=== PATIENT | female | born 1980 | race Caucasian/White ===

== ENCOUNTER 2019-09-09 12:15 | Emergency (ER) | payer OTHER, SELFPAY ==
[2019-09-09 12:27] VITALS: BP 130/98; PULSE 117; RESP 16; TEMP 37
--- NOTE | 2019-09-09 12:33 | ED.WOUNDLAC ---
HPI - Wound/Laceration General Chief Complaint: Wound/Laceration Stated Complaint: laceration Time Seen by Provider: 09/09/19 12:30 Source: patient and RN notes reviewed Mode of arrival: ambulatory Limitations: no limitations History of Present Illness HPI narrative: 38-year-old female presents with concern for laceration to the palm of right hand. Reports prior to arrival she cut her hand on the corner of a wooden dresser drawer. Reports she is up-to-date on her tetanus. Denies any decreased sensation, strength in any digit of her hand. Related Data Home Medications Medication Instructions Recorded Confirmed No Home Medications 09/09/19 09/09/19 Allergies Allergy/AdvReac Type Severity Reaction Status Date / Time No Known Allergies Allergy Verified 07/19/18 15:06 Review of Systems Review of Systems: Narrative: CONSTITUTIONAL: Denies malaise, chills, sweats, or fever. SKIN: Laceration to palm of the right hand MUSCULOSKELETAL: Denies musculoskeletal pain NEUROLOGIC: Denies numbness, weakness. All systems reviewed & are unremarkable except as noted in HPI and below [facility] Family History Family History (Updated 02/20/19 @ 15:25 by Ruthy Nguyen RN) Mother Heart disease Social History Social History Smoking packs per day: 0.5 Smoking cigarettes per day: 10.0 Years smoked: 26 Smoking pack-years: 13.00 Smoking status: Current every day smoker Tobacco type: cigarettes Second hand tobacco smoke exposure: Yes Substance use: never Spiritual care concerns: No Comments At time of signature, agree with nursing past medical, surgical, social and family history. There is no relevant family history pertinent to the presenting complaint Exam Narrative: Exam Narrative: GENERAL: Well-appearing, well-nourished, and in no acute distress. HEAD: Normocephalic, atraumatic. EYES: PERRLA, conjunctivae clear NECK: Supple. CHEST: Speaks in full sentences. No respiratory distress. HEART: Regular rate and rhythm. Normal and equal peripheral pulses. EXTREMITIES: Right/Left hand and digits of hand have normal strength and sensation. 5/5 strength with digit flexion, extension. Range of motion normal. No clubbing, cyanosis, or edema noted. No tenderness. Normal digital cascade with flexion of fingers, median, ulnar and radial nerve intact. Normal sensation of each side of finger. Can perform 'okay' sign, 'cross over finger test of index and middle fingers' and 'thumbs up' sign. No scissoring. Normal thumb opposition. Good capillary refill and radial pulse. Distal capillary refill <3 seconds. SKIN: Warm, dry. Approximately 1 cm laceration noted on the palmar aspect of the right hand, mid palm partially into the subcutaneous tissue, partially superficial NEURO: Alert and oriented x3. PSYCH: Normal mood and affect Course Course Emergency Course: Discussed closure options with patient, discussed the wound is fairly superficial, discussed that glue is the best option, reinforced with Steri-Strips. Patient reports she understands this. Patient is aware of diagnosis, understands and agrees to treatment plan. Anticipatory guidance given. Patient agrees to follow-up as directed and is aware of reasons to seek care at the emergency department. Portions of this record may have been created with voice recognition software Vital Signs Vital signs: Vital Signs Temperature 98.6 F 09/09/19 12:27 Pulse Rate 117 H 09/09/19 12:27 Respiratory Rate 16 09/09/19 12:27 Blood Pressure 130/98 H 09/09/19 12:27 Temperature 98.6 F 09/09/19 12:27 Pulse Rate 117 H 09/09/19 12:27 Respiratory Rate 16 09/09/19 12:27 Blood Pressure 130/98 H 09/09/19 12:27 Reviewed. MDM - Wound/Laceration MDM Narrative Medical decision making narrative: Exam findings show no acute concerns or changes; patient is non-toxic appearing and is in no distress. Patient is appropriate for outpatient treatment and follow-up. Differenti
== END 2019-09-09 13:00 | disposition home or self-care (01) ==
PROVIDERS: Emergency Provider Nurse Practitioner
DX: S61.411A Laceration without foreign body of right hand, initial encounter (principal); W45.8XXA Other foreign body or object entering through skin, initial encounter
CPT/HCPCS: 12001; 99212; G0463

== ENCOUNTER 2020-09-11 00:51 | Day surgery (SDC) | payer OTHER, SELFPAY ==
[2020-09-04 08:54] VITALS: BMI 30.4
[2020-09-11] VITALS (9 sets, daily range): BP systolic 117–132; BP diastolic 70–80; PULSE 72–90; RESP 14–18; TEMP 36.8; O2SAT 94–100; BMI 28.8
--- NOTE | 2020-09-11 06:29 | WPDANESEPPF ---
Anes - Initial Pre Proc Eval Procedure: Operation Date: 09/11/20 07:30 Proposed Procedures p Bilateral Laparoscopic Salpingectomy, - Marj Newton MD s Hysteroscopy, Doris Ablation - Marj Newton MD Date/Time: 09/11/20 06:29 Surgeon: Marj Newton MD Pre Op Diagnosis: desires sterilization, menorrhagia Patient Data Age: 40 Gender: F Height: 1.61 m Weight: 79.09 kg Allergies Allergy/AdvReac Type Severity Reaction Status Date / Time No Known Allergies Allergy Verified 09/11/20 06:08 Home Medications Medication Instructions Recorded Confirmed Type No Home Medications 09/09/19 09/04/20 History Patient hx anesthesia problems: none Family hx anesthesia problems: none PMFSH Past Medical History Medical History (Updated 09/11/20 @ 06:29 by Duc May MD) Obesity Surgical History Surgical History (Updated 09/11/20 @ 06:30 by Duc May MD) History of placement of ear tubes Hx of tonsillectomy Family History Family History Mother Heart disease Social History Social History Smoking packs per day: 0.5 Smoking cigarettes per day: 10.0 Years smoked: 26 Smoking pack-years: 13.00 Smoking status: Current every day smoker Tobacco type: cigarettes Second hand tobacco smoke exposure: Yes Substance use: never Living arrangements: with family Spiritual care concerns: No Anes - Eval Final PreProcedure Day of Procedure 09/11/20 06:29 Patient weight: obese Heart: regular rate and rhythm Lungs: clear to auscultation Airway: Mallampati scale class II Neurological: alert and oriented Last oral intake: >/= 8 hours ASA classification: II Emergent: no Anesthetic plan: proceed Anesthesia type and monitoring: general ETT and standard monitoring Informed Consent: The patient's anesthetic plan and its attendant risks and benefits were discussed with the patient/family/POA. Questions were solicited and answers provided to the satisfaction of the patient/family/POA.
[2020-09-11] MEDS: LACTATED RINGERS 1,000 ML 30 ML IV CONT ×2 (06:45→08:24)
[2020-09-11] MEDS: ACETAMINOPHEN 500 MG TABLET 1000 MG PO (07:07)
[2020-09-11] MEDS: KETOROLAC 15 MG/ML VIAL (*BKC) IV PUSH (07:08)
--- NOTE | 2020-09-11 07:12 | WPDHPUPDATE1 ---
History and Physical Update Update Date/Time: 09/11/20 07:12 History and Physical has been reviewed, including an updated exam of the patient. There are NO changes in the patient's condition. Risks, benefits, and alternatives have been discussed and questions answered. Patient agrees to proceed with procedure.
--- NOTE | 2020-09-11 07:15 | WPDHPUPDATE1 ---
History and Physical Update Update Date/Time: 09/11/20 07:15 History and Physical has been reviewed, including an updated exam of the patient. There are NO changes in the patient's condition. Risks, benefits, and alternatives have been discussed and questions answered. Patient agrees to proceed with procedure.
--- NOTE | 2020-09-11 08:36 | W.PM.PROC2 ---
Procedure Note - Detailed Date of Procedure 09/11/20 Pre-op Diagnosis desires sterilization, menorrhagia Post-op Diagnosis same Procedure Performed Laparoscopic bilateral salpingectomy, endometrial ablation with hysteroscopy Surgeon Marj Newton MD Anesthesia general Indications Unwanted fertility, severe menorrhagia Findings Normal appearing ovaries, fallopian tubes, uterus. Normal vulva vagina and cervix. Normal endometrium. Description of Procedure The patient dissect the operating room. She has prepped draped in the dorsal lithotomy position after induction of general anesthesia. The 5 mm left upper quadrant incision was made with a scalpel. A 5 mm trocar was inserted into the intra-abdominal cavity under direct visualization the scope. Pneumoperitoneum was achieved. A 5 mm left lower quadrant incision was made in the skin with a scalpel. A 5 mm trocar was inserted the intra-abdominal cavity under direct visualization the scope. A 5 mm infraumbilical incision was made with scalp on a 5 mm trocar was inserted intra-abdominal cavity under direct visualization of the scope. The bilateral fallopian tubes were removed. The mesosalpinx of the fallopian tube was cauterized from the ovary in a stepwise fashion using LigaSure cautery. It was cut and cauterized in stepwise fashion around to the corneal part of the uterus and fallopian tube. The tube was transected there in amputated. This was done with LigaSure cautery. The tube was taken at the left lower quadrant trocar site. The contralateral side was done in identical fashion. The patient tolerated this portion of the procedure well. The incisions were closed subcuticular for Monocryl and with Dermabond. A speculum was placed in the vagina. Cervix grasped with a tenaculum. The cervix was dilated to about 1 cm. The hysteroscope was inserted. The above findings were noted. Measurements were taken of the uterus and cervix. The uterine length was then entered into the hand piece of the Doris device. The device was inserted into the intrauterine cavity. The array of the device was expanded. The balloon cuff was inflated. A good seal was achieved. The energy and safety cycles were initiated and completed. The array was collapsed and the instrument was withdrawn after deflating the balloon cuff. Hysteroscope was reinserted. Above findings were noted. The hysteroscope was removed. The patient tolerated the procedure well. The speculum and tenaculum were removed. She was taken to recovery in stable condition. Sponge lap and needle counts were correct x2. Estimated Blood Loss 15
[2020-09-11] MEDS: fentaNYL CITRATE INJ (*CRX) 100 MCG/2 ML VIAL 25 MCG IV PUSH ×4 (08:52→09:12)
--- NOTE | 2020-09-11 08:54 | SUR.PHASEI ---
0852; PT C/O MILD CRAMPING.
--- NOTE | 2020-09-11 09:15 | SUR.PHASEI ---
PT AWAKE AND ALERT. STATES MILD PAIN/CRAMPING AT 5/10. TOLERABLE. READY TOSEE FAMILY
[2020-09-11] MEDS: oxyCODONE HCL (*CRX) 5 MG TAB IR PO (09:38)
== END 2020-09-11 10:44 | disposition home or self-care (01) ==
PROVIDERS: Visit Provider Obstetrics & Gynecology
PROC: (CPT 49320; principal; 2020-09-11 07:30)
PROC: 0U5B8ZZ Destruction of Endometrium, Via Natural or Artificial Opening Endoscopic (ICD-10-PCS; CPT 58563; 2020-09-11 07:30)
DX: Z30.2 Encounter for sterilization (principal); N92.0 Excessive and frequent menstruation with regular cycle; N83.8 Other noninflammatory disorders of ovary, fallopian tube and broad ligament; F17.210 Nicotine dependence, cigarettes, uncomplicated; E66.9 Obesity, unspecified; Z68.28 Body mass index [BMI] 28.0-28.9, adult
CPT/HCPCS: 58661; 58563; 88302; A9270; J0330; J1885; J2250; J2405; J2704; J3010; J7030; J7120

== ENCOUNTER 2021-05-08 15:56 | Outpatient (CLI) | payer OTHER, SELFPAY ==
--- NOTE | ~2021-05-08 | MM_ITS ---
EXAMINATION: MM screening alexandra BI w july HISTORY: Screening TECHNIQUE: Craniocaudal and mediolateral oblique 3-D tomosynthesis images were obtained and synthetic 2-D images were generated. CAD analysis was submitted and interpreted. COMPARISON: No prior mammogram is available for comparison at this institution. BREAST PARENCHYMAL COMPOSITION: There are scattered areas of fibroglandular density. FINDINGS: There is no evidence of suspicious mass, calcification, or architectural distortion to sugg est malignancy in either breast. There has been no suspicious interval change. IMPRESSION: 1. No mammographic evidence of malignancy. 2. Recommend routine screening mammography in one year. BI-RADS Category 1: Negative Reviewed, dictated and finalized at location A. DENTIAL PROGRAM DIRECTOR
== END 2021-05-08 15:57 | disposition home or self-care (01) ==
LOC: ANHIMG 15:57
PROVIDERS: Visit Provider Advanced Practice Midwife
DX: Z12.31 Encounter for screening mammogram for malignant neoplasm of breast (principal)
CPT/HCPCS: 77063; 77067

== ENCOUNTER 2021-12-24 09:49 | Emergency (ER) | payer OTHER, SELFPAY ==
[2021-12-24 09:59] VITALS: BP 139/85; PULSE 97; RESP 16; TEMP 37.8; O2SAT 98
--- NOTE | 2021-12-24 10:21 | ED.URI ---
HPI - URI/Sore Throat General Chief Complaint: Upper Respiratory Infection Stated Complaint: Bodyaches,Sore Throat Time Seen by Provider: 12/24/21 10:05 Source: patient Mode of arrival: ambulatory Limitations: no limitations History of Present Illness HPI Narrative: Ms. Levine is a 41-year-old female patient presenting to the clinic today with complaints of sore throat, chest discomfort with inspiration,body aches, feeling fevers, chills, and nausea. She reports that this has been going on for 1 day. She denies any known exposure to anybody with COVID, flu, or strep MD elicited complaint: sore throat and nasal congestion Related Data Allergies Allergy/AdvReac Type Severity Reaction Status Date / Time No Known Allergies Allergy Verified 12/24/21 10:05 Review of Systems Review of Systems: Pertinent positives per HPI. Patient denies any rash, headache, visual changes, dizziness, shortness of breath, chest pain, palpitations, vomiting, diarrhea, constipation, abdominal pain, or any urinary issues. PMFSH Past Medical History Medical History Obesity Surgical History Surgical History History of placement of ear tubes Hx of tonsillectomy Family History Family History Mother Heart disease Social History Social History Smoking packs per day: 0.5 Smoking cigarettes per day: 10.0 Years smoked: 26 Smoking pack-years: 13.00 Smoking status: Current every day smoker Tobacco type: cigarettes Second hand tobacco smoke exposure: Yes Substance use: never Spiritual care concerns: No Comments At the time of my signature, I reviewed and agree with the nursing past medical, surgical, social, and family history. There is no relevant family history pertinent to the patient complaint. Exam Narrative: General: Well-developed, well nourished, in no apparent distress Head: Normocephalic, atraumatic Eyes: Pupils equally round and reactive to light bilaterally, EOM intact, sclera and conjunctive clear, no discharge, lids normal Ears: TMs intact and dull, ear canals clear, no drainage, grossly hearing normal. Nose: Nares patent, clear nasal discharge, no inflammation, no sinus tenderness. Mouth: Oral pharynx without lesions or masses, good dentition, MMM. oropharynx red, postnasal drip, tonsils surgically absent Neck: Supple, trachea midline, no enlargement of anterior or posterior cervical nodes, no thyroid masses or goiter palpable. Cardio: Regular rate and rhythm, s1 and s2 normal, no murmur appreciated. Resp: Clear to auscultation bilaterally, no rhonchi, rales, wheezing or rubs Abdomen: Soft, pliable, nontender to palpation, no CVAT tenderness, no organomegaly, bowel sounds present all 4 quadrants Course Course Emergency Course: Portions of this record may have been created with voice recognition software. Level of Care: Express Care Visit Vital Signs Vital signs: Vital Signs Temperature 37.8 C H 12/24/21 09:59 Pulse Rate 97 12/24/21 09:59 Respiratory Rate 16 12/24/21 09:59 Blood Pressure 139/85 12/24/21 09:59 Pulse Oximetry 98 12/24/21 09:59 Oxygen Delivery Room Air 12/24/21 09:59 Temperature 37.8 C H 12/24/21 09:59 Pulse Rate 97 12/24/21 09:59 Respiratory Rate 16 12/24/21 09:59 Blood Pressure 139/85 12/24/21 09:59 Pulse Oximetry 98 12/24/21 09:59 Oxygen Delivery Room Air 12/24/21 09:59 Vital signs reviewed MDM - URI/Sore Throat MDM Narrative Medical decision making narrative: at the time of visit patient is resting comfortably on the exam table. Strep and influenza testing was obtained and was negative in the clinic today. COVID PCR test was sent to the lab. Supportive measures were discussed with david
== END 2021-12-24 10:53 | disposition home or self-care (01) ==
PROVIDERS: Emergency Provider Nurse Practitioner Family
DX: B34.9 Viral infection, unspecified (principal); J06.9 Acute upper respiratory infection, unspecified; R09.82 Postnasal drip; F17.210 Nicotine dependence, cigarettes, uncomplicated; E66.9 Obesity, unspecified; Z68.28 Body mass index [BMI] 28.0-28.9, adult
CPT/HCPCS: 87081; 87804; 87880; 99213; G0463

== ENCOUNTER 2022-02-11 10:08 | Emergency (ER) | payer OTHER, SELFPAY ==
--- NOTE | ~2022-02-11 | XR_ITS ---
Clinical Indication: Cough, congestion PA and lateral views of the chest: Comparison: 12/28/2010 Findings: The lungs are clear, without evidence of focal consolidation or pleural effusion. Cardiome diastinal silhouette is within normal limits. Bones and soft tissues are unremarkable. Impression: Normal chest. Reviewed, dictated and finalized at location [] [employer]OR ASSEMBLER Impression: Normal chest.
[2022-02-11 10:15] VITALS: BP 145/109; PULSE 98; RESP 16; TEMP 36.8; O2SAT 100
--- NOTE | 2022-02-11 10:56 | ED.URI ---
HPI - URI/Sore Throat General Chief Complaint: Upper Respiratory Infection Stated Complaint: sob Time Seen by Provider: 02/11/22 10:49 Source: patient and RN notes reviewed Mode of arrival: ambulatory Limitations: no limitations History of Present Illness HPI Narrative: 41-year-old female presents concern for cough, shortness of breath, chest congestion, chest pain when she takes a deep breath. Difficulty taking deep breath. She reports the symptoms started on Wednesday. She reports she previously had COVID and has been coughing car for quite time. She reports she has been using her albuterol inhaler without relief. She denies taking any other [id number] medications for her symptoms MD elicited complaint: cough and sore throat Related Data Allergies Allergy/AdvReac Type Severity Reaction Status Date / Time No Known Allergies Allergy Verified 12/24/21 10:05 Review of Systems Review of Systems: CONSTITUTIONAL: Reports malaise EYES: Denies visual changes, redness, or discharge. ENT: Denies rhinorrhea, congestion, sinus pain, otalgia and sore throat. CARDIOVASCULAR: Denies chest pain, palpitations, or edema. RESPIRATORY: Reports cough, chest congestion, chest hurting with deep breathing, episodic dyspnea. GASTROINTESTINAL: Denies abdominal pain, nausea, vomiting, diarrhea SKIN: Denies rash or itching. MUSCULOSKELETAL: Denies myalgia. NEUROLOGIC: Denies headache. All systems reviewed & are unremarkable except as noted in HPI and below PMFSH Past Medical History Medical History Obesity Surgical History Surgical History History of placement of ear tubes Hx of tonsillectomy Family History Family History Mother Heart disease Social History Social History Smoking packs per day: 0.5 Smoking cigarettes per day: 10.0 Years smoked: 26 Smoking pack-years: 13.00 Smoking status: Current every day smoker Tobacco type: cigarettes Second hand tobacco smoke exposure: Yes Substance use: never Spiritual care concerns: No Comments At time of signature, agree with nursing past medical, surgical, social and family history. There is no relevant family history pertinent to the presenting complaint Exam Narrative: GENERAL: Well-appearing, well-nourished, and in no acute distress. HEAD: Normocephalic EYES: PERRLA, conjunctivae clear ENT: Nares clear. Mucous membranes moist. TM pearly judge with dull light reflex bilaterally; no tragal tenderness. Oropharynx not erythematous without lesions. Tonsils not enlarged and without exudate, no drooling, no hoarseness, no trismus, uvula midline. NECK: Supple. No lymphadenopathy CHEST: Scattered inspiratory and expiratory wheeze, scattered rhonchi, aeration fair right upper diminished. No rales, or stridor. No respiratory distress, speaks in full sentences. HEART: Regular rate and rhythm. No murmur heard. SKIN: Warm, dry, no rash. NEURO: Alert and oriented x3. PSYCH: Normal mood and affect Course Course Emergency Course: Patient is aware of diagnosis, understands and agrees to treatment plan. Anticipatory guidance given. Patient agrees to follow-up as directed and is aware of reasons to seek care at the emergency department. Portions of this record may have been created with voice recognition software Level of Care: Express Care Visit Vital Signs Vital signs: Vital Signs Temperature 98.2 F 02/11/22 10:15 Pulse Rate 98 02/11/22 10:15 Respiratory Rate 16 02/11/22 10:15 Blood Pressure 145/109 H 02/11/22 10:15 Pulse Oximetry 100 02/11/22 10:15 Oxygen Delivery Room Air 02/11/22 10:15 Temperature 98.2 F 02/11/22 10:15 Pulse Rate 98 02/11/22 10:15 Respiratory Rate 16 02/11/22 10:15 Blood Pressure
== END 2022-02-11 11:40 | disposition home or self-care (01) ==
PROVIDERS: Emergency Provider Nurse Practitioner
DX: J06.9 Acute upper respiratory infection, unspecified (principal); R05.9 Cough, unspecified; F17.210 Nicotine dependence, cigarettes, uncomplicated; E66.9 Obesity, unspecified; Z68.27 Body mass index [BMI] 27.0-27.9, adult
CPT/HCPCS: 71046; 99213; G0463

== ENCOUNTER 2022-11-06 03:34 | Emergency (ER) | payer OTHER, SELFPAY ==
--- NOTE | ~2022-11-06 | XR_ITS ---
Left Hand Technique: PA, oblique, and lateral views were obtained. Clinical History: Pain Findings: No acute fracture or dislocation is seen. Osseous alignment is anatomic. Joint spaces are p reserved. Soft tissues are unremarkable. Impression: Unremarkable left hand. Reviewed, dictated and finalized at location M. Impression: Unremarkable left hand.
[2022-11-06 03:37] VITALS: BP 147/76; PULSE 91; RESP 16; TEMP 36.8; O2SAT 100
[2022-11-06 04:13] VITALS: BP 120/91; PULSE 85; RESP 15; TEMP 36.6; O2SAT 99
--- NOTE | 2022-11-06 05:54 | ED.GENADULT ---
HPI - General Adult General Chief complaint: Extremity Injury, Upper Stated complaint: finger injury Time Seen by Provider: 11/06/22 04:15 History of Present Illness HPI narrative: This is a 42-year-old female presenting ED with chief complaint of pinky pain. Patient says she woke up from sleep with her pinky hurting. She notes some swellig and there is some bruising. She does not remember striking her pinky on anything. \ no other complaints Related Data Allergies Allergy/AdvReac Type Severity Reaction Status Date / Time No Known Allergies Allergy Verified 12/24/21 10:05 [facility] Past Medical History Medical History Obesity Surgical History Surgical History History of placement of ear tubes Hx of tonsillectomy Family History Family History Mother Heart disease Social History Social History Smoking packs per day: 0.5 Smoking cigarettes per day: 10.0 Years smoked: 26 Smoking pack-years: 13.00 Smoking status: Current every day smoker Tobacco type: cigarettes Second hand tobacco smoke exposure: Yes Substance use: never Living arrangements: with family Spiritual care concerns: No Exam Narrative: APPEARANCE: No apparent distress. Head: atraumatic. EYES: EOMI, NOSE: Atraumatic NECK: Trachea midline RESPIRATORY: No increased rate of breathing CARDIOVASCULAR: RRR, ABDOMINAL: Non-distended MUSCULOSKELETAl: mild swelling and bruising to the left pinky. Cap refill less than 2 seconds. Flexion extension intact. NEURO: Alert. Moving 4/4 extremities SKIN:: Warm, dry. Normal color PSYCHIATRIC: Normal affect Course Vital Signs Vital signs: Vital Signs Temperature 98.2 F 11/06/22 03:37 Pulse Rate 91 11/06/22 03:37 Respiratory Rate 16 11/06/22 03:37 Blood Pressure 147/76 H 11/06/22 03:37 Pulse Oximetry 100 11/06/22 03:37 Oxygen Delivery Room Air 11/06/22 03:37 Temperature 97.9 F 11/06/22 04:13 Pulse Rate 85 11/06/22 04:13 Respiratory Rate 15 11/06/22 04:13 Blood Pressure 120/91 H 11/06/22 04:13 Pulse Oximetry 99 11/06/22 04:13 Oxygen Delivery Room Air 11/06/22 03:37 Medical Decision Making [facility] Narrative Medical decision making narrative: -Course: 42-year-old presenting with pinky pain. Exam shows some bruising. X-rays negative for fracture. Patient be discharged on a course of NSAIDs. Primary care follow-up. -DDX includes but is not limited to: Occult phalanx fracture, soft tissue injury -Independent interpretation of studies: x-rays negative. -Interventions: Motrin Tylenol -Shared decision making / Disposition: discharge -RX Motrin Tylenol Vital Signs Vital Signs: Vital Signs Temperature 98.2 F 11/06/22 03:37 Pulse Rate 91 11/06/22 03:37 Respiratory Rate 16 11/06/22 03:37 Blood Pressure 147/76 H 11/06/22 03:37 Pulse Oximetry 100 11/06/22 03:37 Oxygen Delivery Room Air 11/06/22 03:37 Temperature 97.9 F 11/06/22 04:13 Pulse Rate 85 11/06/22 04:13 Respiratory Rate 15 11/06/22 04:13 Blood Pressure 120/91 H 11/06/22 04:13 Pulse Oximetry 99 11/06/22 04:13 Oxygen Delivery Room Air 11/06/22 03:37 Discharge Plan Discharge Clinical Impression: Finger pain Patient Disposition: Home, Self-Care Condition: Stable Instructions: Antibiotic Form, Finger Sprain (ED) Prescriptions: New ibuprofen 800 mg tablet 800 mg PO TID PRN (Reason: pain) 7 Days Qty: 21 0RF acetaminophen 500 mg tablet 1,000 mg PO TID PRN (Reason: josesito) 7 Days Qty: 42 0RF No Action albuterol sulfate 90 mcg/actuation HFA aerosol inhaler 2 puff inhalation Q4-6H PRN (Reason: shortness of breath or wheezing) 30 Days Qty: 8.5 0RF promethazine-DM 6.25-15 mg/5 mL syrup
[2022-11-06] MEDS: ACETAMINOPHEN 500 MG TABLET 1000 MG PO (06:08)
[2022-11-06] MEDS: IBUPROFEN 400 MG TABLET 800 MG PO (06:08)
[2022-11-06 06:10] VITALS: BP 130/87; PULSE 72; RESP 14; TEMP 37.3; O2SAT 97
== END 2022-11-06 06:12 | disposition home or self-care (01) ==
PROVIDERS: Emergency Provider Emergency Medicine
DX: M79.645 Pain in left finger(s) (principal); E66.9 Obesity, unspecified; Z68.30 Body mass index [BMI] 30.0-30.9, adult; F17.210 Nicotine dependence, cigarettes, uncomplicated
CPT/HCPCS: 73130; 99283; A9270

== ENCOUNTER 2022-12-22 08:37 | Emergency (ER) | payer OTHER, SELFPAY ==
--- NOTE | ~2022-12-22 | XR_ITS ---
XR chest 1V portable 12/22/2022 09:06 Indication: Shortness of breath, fever and rash. Cough. Procedure: AP portable chest Comparison: 02/11/2022 Findings: Heart size normal. No focal air space disease, pulmonary edema, or suspected pneumothorax. Small right pleural effusion. No acute osseous abnormality. Impression: 1: Small right pleural effusion. Reviewed, dictated and finalized at location L. Impression: 1: Small right pleural effusion.
[2022-12-22 08:42] VITALS: BP 152/78; PULSE 95; RESP 18; TEMP 36.9; O2SAT 100
--- NOTE | 2022-12-22 08:55 | ED.GENADULT ---
HPI - General Adult General Chief complaint: Skin/Abscess/Foreign Body Stated complaint: rash Time Seen by Provider: 12/22/22 08:44 History of Present Illness HPI narrative: 42-year-old female present emergency department for evaluation of cough shortness of breath low-grade fever and rash to her lower legs. Patient states that symptoms started on Wednesday with low-grade fever cough and shortness of breath. Patient states that last night she began developing some itching of her bilateral lower legs without associated rash. Patient did try some witch halle with no change in symptoms. Patient did not try any Benadryl. Related Data Allergies Allergy/AdvReac Type Severity Reaction Status Date / Time No Known Allergies Allergy Verified 12/22/22 08:55 Review of Systems Review of Systems: All systems reviewed & are unremarkable except as noted in HPI and below PMFSH Past Medical History Medical History Obesity Surgical History Surgical History History of placement of ear tubes Hx of tonsillectomy Family History Family History Mother Heart disease Social History Social History Smoking packs per day: 0.5 Smoking cigarettes per day: 10.0 Years smoked: 26 Smoking pack-years: 13.00 Smoking status: Current every day smoker Tobacco type: cigarettes Second hand tobacco smoke exposure: Yes Substance use: never Living arrangements: with family Spiritual care concerns: No Exam Narrative: APPEARANCE: Well appearing, no pain, no distress, well-nourished. HEAD: normocephalic, atraumatic. EYES: PERRLA/EOMI, conjunctivae clear. NOSE: Normal no drainage EARS:TMS clear with good light reflex. THROAT: Pharynx clear, no exudate. NECK: Supple. No adenopathy, no masses. RESPIRATORY: Airway patent, respirations nonlabored. Clear to auscultation bilaterally, no rales, rhonchi, wheezing. CARDIOVASCULAR: Regular rate and rhythm without murmurs rubs or gallops. ABDOMINAL: Soft, nontender, nondistended, normal bowel sounds MUSCULOSKELETAL: Moves all extremities. Strength/ROM intact, No edema, No calf tenderness. NEURO: Alert. Cranial nerves II through XII intact. Good gait. Good coordination SKIN: Urticaria to bilateral lower extremities Course Course Emergency Course: 42-year-old female presented the emergency department for evaluation of cough congestion low-grade fever and rash to lower legs. Patient is being ordered a COVID swab and a chest x-ray to evaluate for viral etiology or pneumonia. Lower extremities rash does appear consistent with allergic reaction. Patient's chest x-ray was negative other than the small pleural effusion. Patient was negative for influenza RSV and COVID. Patient is being treated for an allergic reaction. Patient was updated the results of the work-up and patient was comfortable to plan for discharge and close follow-up. Vital Signs Vital signs: Vital Signs Temperature 98.5 F 12/22/22 08:42 Pulse Rate 95 12/22/22 08:42 Respiratory Rate 18 12/22/22 08:42 Blood Pressure 152/78 H 12/22/22 08:42 Pulse Oximetry 100 12/22/22 08:42 Oxygen Delivery Room Air 12/22/22 08:42 Temperature 98.5 F 12/22/22 08:42 Pulse Rate 88 12/22/22 10:41 Respiratory Rate 14 12/22/22 10:41 Blood Pressure 144/84 H 12/22/22 10:41 Pulse Oximetry 99 12/22/22 10:41 Oxygen Delivery Room Air 12/22/22 08:42 Medical Decision Making Differential Diagnosis Differential Diagnosis: Allergic reaction, cellulitis, dermatitis Vital Signs Vital Signs: Vital Signs Temperature 98.5 F 12/22/22 08:42 Pulse Rate 95 12/22/22 08:42 Respiratory Rate 18 12/22/22 08:42 Blood Pressure 152/78 H 12/22/22 08:42 Pulse Oximetry 100 12/22/22 08:42 Oxyg
[2022-12-22 09:52] LABS: Influenza A QL RT-PCR Negative (Negative); Influenza B QL RT-PCR Negative (Negative); RSV RNA, RT-PCR Negative (Negative); SARS-CoV-2 RNA PCR Negative (Negative)
[2022-12-22 10:41] VITALS: BP 144/84; PULSE 88; RESP 14; O2SAT 99
== END 2022-12-22 10:44 | disposition home or self-care (01) ==
PROVIDERS: Emergency Provider Emergency Medicine
DX: T78.40XA Allergy, unspecified, initial encounter (principal); X58.XXXA Exposure to other specified factors, initial encounter
CPT/HCPCS: 71045; 87637; 99283

== ENCOUNTER 2023-01-07 18:09 | Inpatient (IN) | payer OTHER, SELFPAY ==
[2023-01-07] VITALS (27 sets, daily range): BP systolic 106–147; BP diastolic 56–83; PULSE 101–130; RESP 15–41; TEMP 37.2–38.2; O2SAT 91–95
--- NOTE | ~2023-01-07 | XR_ITS ---
EXAMINATION: XR chest 1V portable DATE: 01/07/2023 19:22 INDICATION: Sepsis. Shortness of breath. Cough. TECHNIQUE: A single frontal view of the chest was obtained. COMPARISON: Chest single view 12/22/2022 FINDINGS: There is no pneumonia, pleural effusion, or pneumothorax. The heart size is normal. IMPRESSION: 1. No acute cardiopulmonary disease. Reviewed, dictated and finalized at location E. DEVELOPER
--- NOTE | ~2023-01-07 | CT_ITS ---
EXAMINATION: CTA chest PE protocol DATE: 01/07/2023 21:28 INDICATION: Dyspnea. TECHNIQUE: Computed tomography angiography (CTA) of the chest was performed with 100 mL Omnipaque-350 intravenous contrast timed to evaluate the pulmonary arteries. Coronal maximum intensity projection 3D-reconstructions were created by the technologist. Automated exposure control and iterative reconst ruction technique were employed. The dose-length product was 454.36 mGy-cm. COMPARISON: None. FINDINGS: There is mild scarring at the lung apices. There is mild emphysema. There is smooth septal thickening in the lungs, consistent with mild pulmonary edema. There are scattered small nodules in a ll lobes. There are small peripheral airspace opacities in the inferior lungs. A calcified left lung nodule and calcified left hilar lymph nodes are consistent with old granulomatous disease. There are trace pleural effusions. The heart size is normal. No pericardial effusion. There is no pulmonary emb olus. There is mild mediastinal and bilateral hilar lymphadenopathy. There is a small sliding hiatal hernia. There is an 18 mm mass in the liver with interrupted peripheral puddling of contrast, consist ent with a hemangioma. There is moderate cervical spondylosis and mild thoracic spondylosis. IMPRESSION: 1. No pulmonary embolus. 2. Diffuse lung disease, likely a combination of mild pulmonary edema and multifocal pneumonia superi mposed on mild emphysema. 3. Mild mediastinal and bilateral hilar lymphadenopathy, likely reactive. Reviewed, dictated and finalized at location E. RITY SOLUTIONS ARCHITECT IMPRESSION: 1. No pulmonary embolus. 2. Diffuse lung disease, likely a combination of mild pulmonary edema and multi focal pneumonia superimposed on mild emphysema. 3. Mild mediastinal and bilateral hilar lymphadenopathy, likely reactive.
--- NOTE | 2023-01-07 18:20 | ECG_ITS ---
Measurements Intervals [place] Rate: 108 P: 60 DC: 116 QRS: 66 QRSD: 81 T: 68 QT: 329 QTc: 442 Interpretive Statements SINUS TACHYCARDIA WITH SHORT DC INTERVAL LEFT ATRIAL ENLARGEMENT NONSPECIFIC ST & T-WAVE ABNORMALITY- ANTEROLATERAL LEADS BASELINE ARTIFACT- AVL ABNORMAL ECG NO PREVIOUS ECG AVAILABLE FOR COMPARISON Electronically Signed On 01-07-2023 18:49:41 LUNCHEONETTE MANAGER by Anatoliy Beckman D.O.
--- NOTE | 2023-01-07 18:22 | ED.GENADULT ---
HPI - General Adult General Chief complaint: Unspecified Stated complaint: flu sx Source: patient Mode of arrival: EMS Limitations: no limitations History of Present Illness HPI narrative: This is a 42-year-old female who presents to the ED via EMS for chief complaint of flulike symptoms beginning today. Reports that she was at work when she started to feel sick today. Reports having body aches, cough and sore throat. She reports she is a smoker so she always has a little bit of a cough but it is somewhat productive. She called ambulance today because she started to feel short of breath. Reports tightness with breathing. Patient reports the body aches are all throughout the arms, legs and back. Denies chest pain or abdominal pain. Denies nausea, vomiting, leg swelling, palpitations, LOC, headache, neck pain. States she did a home COVID test that was negative. Related Data Allergies Allergy/AdvReac Type Severity Reaction Status Date / Time No Known Allergies Allergy Verified 12/22/22 08:55 Review of Systems Review of Systems: All systems as dictated in [facility] Past Medical History Medical History Obesity Surgical History Surgical History History of placement of ear tubes Hx of tonsillectomy Family History Family History Mother Heart disease Social History Social History Smoking packs per day: 0.5 Smoking cigarettes per day: 10.0 Years smoked: 26 Smoking pack-years: 13.00 Smoking status: Current every day smoker Tobacco type: cigarettes Second hand tobacco smoke exposure: Yes Substance use: never Living arrangements: with family Spiritual care concerns: No Exam Narrative: GENERAL: Appears ill HEAD: Normocephalic, atraumatic. EYES: PERRLA and EOMI. ENT: Nares clear, no rhinorrhea or epistaxis. Mucous membranes moist. Oropharynx without tonsillar hypertrophy exudate or other lesions. NECK: Supple. No adenopathy or masses. CHEST: No respiratory distress. Tachypnea present. Faint wheezes heard bilaterally. 93% on room air. Able to speak in full sentences HEART: Tachycardic in the 110s. Regular rhythm.. No murmur heard. Normal peripheral pulses. ABDOMEN: Soft, nontender, nondistended, normal active bowel sounds. MSK: Normal range of motion. No edema. SKIN: Warm, dry, no rash. NEURO: Alert and oriented x3. No focal deficits. PSYCH: Normal mood and affect. Course Course Emergency Course: Became hypoxic in the upper 80s during the evaluation so she was placed on 2 L nasal cannula. Reevaluation 2140: Patient feeling okay. She is agreeable with plan for admission based on the findings of pneumonia. Vital Signs Vital signs: Vital Signs Temperature 100.7 F H 01/07/23 18:12 Pulse Rate 118 H 01/07/23 18:12 Respiratory Rate 32 H 01/07/23 18:12 Blood Pressure 147/83 H 01/07/23 18:12 Pulse Oximetry 93 01/07/23 18:12 Oxygen Delivery Room Air 01/07/23 18:12 Temperature 100.7 F H 01/07/23 18:12 Pulse Rate 107 H 01/07/23 20:06 Respiratory Rate 26 H 01/07/23 20:06 Blood Pressure 126/71 01/07/23 20:05 Pulse Oximetry 92 01/07/23 21:01 Oxygen Delivery Nasal Cannula 01/07/23 21:01 Oxygen Flow Rate 2 01/07/23 21:01 Medical Decision Making MDM Narrative Medical decision making narrative: This is a 42-year-old female who presents to the ED via EMS for chief complaint of shortness of breath. She arrives tachycardic, tachypneic and febrile triggering sepsis protocol. Initially she is 93% on room air. During the evaluation she stated consistently in the upper 80s so she was started on 2 L nasal cannula. On exam I hear some slight wheezes but otherwise exam is intact. She is a long-term smoker. Lab work shows a white
[2023-01-07] MEDS: SODIUM CHLORIDE 0.9% IV 1,000 ML 999 ML IV CONT ×2 (19:19→21:45)
[2023-01-07 19:23] LABS: Alanine Aminotransferase 18 U/L (6-35); Albumin Level 4.2 g/dL (3.5-5.1); Alkaline Phosphatase 94 U/L (38-126); Anion Gap 8 mmol/L (8-16); Aspartate Amino Transferase 17 U/L (14-36); Blood Urea Nitrogen 6 mg/dL (7-17); CRP 2.9 mg/dL (<1.0); Calcium 8.9 mg/dL (8.4-10.2); Carbon Dioxide 23 mmol/L (22-30); Chloride 105 mmol/L (98-107); Estimated CRCL calculation 101 ml/min; Estimated Glomerular Filt Rate > 60; Glucose 113 mg/dL (65-110); Potassium 3.6 mmol/L (3.4-5.0); Sodium 136 mmol/L (137-145)
[2023-01-07 19:24] LABS: Lactic Acid Reflex 1.3 mmol/L (0.7-2.0)
[2023-01-07 19:30] LABS: Influenza A QL RT-PCR Negative (Negative); Influenza B QL RT-PCR Negative (Negative); RSV RNA, RT-PCR Negative (Negative); SARS-CoV-2 RNA PCR Negative (Negative)
--- NOTE | 2023-01-07 20:13 | PC.NURSE ---
pt states they are unable to void at this time and would like more time to urinate instead of a straight cath. pt was educated to use call light when they have any urge to urinate. pt is a hard stick and phlebotomy was consulted @1845 for blood tests. as of now phlebotomy has not been down yet. pt refused any blood draw attempts from any tech on the floor.
--- NOTE | 2023-01-07 20:25 | PC.NURSE ---
pt states they would like to refuse anymore needle sticks. pt had 2 attempts in ems and multiple attempts (6-7) for blood draw at ED. pt was educated on the purpose of getting a CTA but still would like to refuse. provider notified.
[2023-01-07 21:09] LABS: Basophils Percent Auto 0.1 % (0.2-1.2); Eosinophils Absolute Auto 0.5 K/mm3 (0-0.3); Eosinophils Percent Auto 2.3 % (0-4.4); Hemoglobin 13.7 g/dL (12.0-15.0); Immature Granulocyte Absolute 0.09 K/mm3 (0.00-0.031); Immature Granulocyte Percent A 0.4 % (0-0.5); Lymphocytes Absolute Auto 0.95 K/mm3 (0.9-3.2); Lymphocytes Percent Auto 4.7 % (18.3-44.2); Mean Corpuscular HGB Conc 31.9 g/dl (32-36); Mean Corpuscular Volume 84.6 fl (80-100); Monocytes Absolute Auto 0.7 K/mm3 (0.1-0.6); Monocytes Percent Auto 3.3 % (2.6-8.5); Neutrophils Percent Auto 89.2 % (45.5-73.1); Platelet Count Result 237 k/mm3 (150-375); Red Blood Count 5.08 M/mm3 (4.2-5.4); Red Cell Distribution Width 14.6 % (11.5-14.5); White Blood Count 20.2 K/mm3 (4.5-10.0)
[2023-01-07 21:15] LABS: Partial Thromboplastin Time 37.8 SECONDS (22.3-36.8)
[2023-01-07] MEDS: ACETAMINOPHEN 500 MG TABLET 1000 MG PO (22:00)
[2023-01-07] MEDS: AZITHROMYCIN 500 MG/NS 250 ML 500 MG/250 ML BAG 250 MG IVPB (22:02)
--- NOTE | 2023-01-07 23:04 | PC.NURSE ---
pt care and report given to JHOANA Marino. all questions answered.
[2023-01-07] MEDS: SODIUM CHLORIDE 0.9% IV 1,000 ML 125 ML IV CONT (23:42)
--- NOTE | 2023-01-07 23:47 | PM.IMHP ---
H&P: HPI History of Present Illness Date/Time: 01/07/23 23:47 Chief Complaint: Cough, Flu like symptoms Narrative: This is a 42-year-old female who presents to the ED via EMS for chief complaint of flulike symptoms beginning today.? Reports that she was at work when she started to feel sick today.? Reports having body aches, cough and sore throat.? She reports she is a smoker so she always has a little bit of a cough but it is somewhat productive.? She called ambulance today because she started to feel short of breath.? Reports tightness with breathing.? Patient reports the body aches are all throughout the arms, legs and back.? Denies chest pain or abdominal pain.? Denies nausea, vomiting, leg swelling, palpitations, LOC, headache, neck pain. She denied fever, N/V/D. She was found to have multifocal pneumonia in the ED, she requires 4L of o2 to maintain saturation above 95%, she is tacycardic and tachypneic, has received fluid bolus and also antibiotics, feels much better. Review of Systems Review of Systems: All systems reviewed & are unremarkable except as noted in HPI and below PMFSH Past Medical History Medical History Obesity Surgical History Surgical History History of placement of ear tubes Hx of tonsillectomy Family History Family History Mother Heart disease Social History Social History Smoking packs per day: 0.5 Smoking cigarettes per day: 10.0 Years smoked: 26 Smoking pack-years: 13.00 Smoking status: Current every day smoker Tobacco type: cigarettes Second hand tobacco smoke exposure: Yes Substance use: never Living arrangements: with family Spiritual care concerns: No Meds Home Medications and Allergies Home Medications Medication Instructions Recorded Confirmed Type albuterol sulfate 90 mcg/actuation 2 puff inhalation Q4-6H PRN 12/24/21 02/11/22 Rx aerosol inhaler shortness of breath or wheezing 30 days #8.5 grams azithromycin 250 mg tablet See Rx Instructions PO .COMPLEX #6 02/11/22 Rx (Zithromax Z-Elliot) tabs prednisone 20 mg tablet 40 mg PO DAILY 5 days #10 tabs 02/11/22 Rx promethazine-DM 6.25 mg-15 mg/5 mL 5 ml PO Q4-6H PRN cough #120 mL 02/11/22 Rx oral syrup acetaminophen 500 mg tablet 1,000 mg PO TID PRN josesito 7 days #42 11/06/22 Rx tabs ibuprofen 800 mg tablet 800 mg PO TID PRN pain 7 days #21 11/06/22 Rx tabs prednisone 50 mg tablet 50 mg PO DAILY #5 tabs 12/22/22 Rx Allergies Allergy/AdvReac Type Severity Reaction Status Date / Time No Known Allergies Allergy Verified 12/22/22 08:55 Vital Signs Vital Signs - 24 hr 01/07/23 18:12 01/07/23 18:12 01/07/23 18:12 Temperature 100.7 F H Pulse Rate 118 H 117 H Respiratory Rate 32 H Blood Pressure 147/83 H Pulse Oximetry 93 93 Oxygen Delivery Room Air Room Air Oxygen Flow Rate 01/07/23 18:17 01/07/23 18:30 01/07/23 18:45 Temperature Pulse Rate 122 H 113 H 119 H Respiratory Rate 26 H 17 15 Blood Pressure Pulse Oximetry 93 92 Oxygen Delivery Oxygen Flow Rate 01/07/23 19:00 01/07/23 19:15 01/07/23 19:30 Temperature Pulse Rate 116 H 130 H 118 H Respiratory Rate 24 H 25 H 29 H Blood Pressure Pulse Oximetry 91 92 92 Oxygen Delivery Oxygen Flow Rate 01/07/23 19:45 01/07/23 20:00 01/07/23 20:05 Temperature Pulse Rate 110 H 107 H 108 H Respiratory Rate 26 H 30 H 27 H Blood Pressure 126/71 Pulse Oximetry 93 91 92 Oxygen Delivery Oxygen Flow Rate 01/07/23 21:01 01/07/23 20:06 01/07/23 21:43 Temperature Pulse Rate 107 H 115 H Respiratory Rate 26 H 21 H Blood Pressure Pulse Oximetry 92 91 94 Oxygen Delivery Nasal Cannula Oxygen Flow Rate 2 01/07/23 21:45 01/07/23 21:54 01/07/23
[2023-01-08] VITALS (32 sets, daily range): BP systolic 106–139; BP diastolic 59–82; PULSE 72–119; RESP 14–31; O2SAT 90–100; BMI 29.2
[2023-01-08 03:43] LABS: Appearance Urine Clear (Clear); Bilirubin Urine Negative (Negative); Blood Urine Negative (Negative); Color Urine Yellow (Yellow); Glucose Urine UA Negative (Negative); Ketones Urine Negative (Negative); Leukocyte Esterase Ur Negative LEU/UL (Negative); Nitrate Urine Negative (Negative); Protein Urine Negative (Negative)
[2023-01-08 03:45] LABS: Add Urine Microscopic? NO; Specific Grav Ur 1.041 (1.001-1.035)
[2023-01-08] MEDS: IPRATROPIUM BR 0.02% INH SOLN 0.5 MG/2.5 ML VIAL INHALATION ×2 (04:29→11:00)
[2023-01-08] MEDS: ALBUTEROL SULFATE NEB 2.5 MG/3 ML INH INHALATION ×2 (04:29→11:00)
[2023-01-08 07:46] LABS: Basophils Percent Auto 0.1 % (0.2-1.2); Eosinophils Absolute Auto 0.9 K/mm3 (0-0.3); Eosinophils Percent Auto 7.7 % (0-4.4); Hemoglobin 13.4 g/dL (12.0-15.0); Immature Granulocyte Absolute 0.03 K/mm3 (0.00-0.031); Immature Granulocyte Percent A 0.2 % (0-0.5); Lymphocytes Absolute Auto 0.81 K/mm3 (0.9-3.2); Lymphocytes Percent Auto 6.6 % (18.3-44.2); Mean Corpuscular HGB Conc 31.2 g/dl (32-36); Mean Corpuscular Hemoglobin 27.1 pg (26-34); Monocytes Absolute Auto 0.6 K/mm3 (0.1-0.6); Monocytes Percent Auto 4.8 % (2.6-8.5); Neutrophils Absolute Auto 9.8 K/mm3 (1.3-6.7); Neutrophils Percent Auto 80.6 % (45.5-73.1); Platelet Count Result 220 k/mm3 (150-375); Red Blood Count 4.94 M/mm3 (4.2-5.4); Red Cell Distribution Width 14.6 % (11.5-14.5); White Blood Count 12.2 K/mm3 (4.5-10.0)
[2023-01-08] MEDS: SODIUM CHLORIDE 0.9% IV 1,000 ML 125 ML IV CONT (07:48)
[2023-01-08 07:50] LABS: Anion Gap 4 mmol/L (8-16); Blood Urea Nitrogen 5 mg/dL (7-17); Calcium 7.9 mg/dL (8.4-10.2); Carbon Dioxide 26 mmol/L (22-30); Chloride 106 mmol/L (98-107); Estimated CRCL calculation 101 ml/min; Estimated Glomerular Filt Rate > 60; Glucose 95 mg/dL (65-110); Potassium 3.5 mmol/L (3.4-5.0); Sodium 136 mmol/L (137-145)
--- NOTE | 2023-01-08 07:53 | PC.NURSE ---
Breakfast tray ordered for pt
--- NOTE | 2023-01-08 07:53 | PC.NURSE ---
Lovenox education provided to pt who refused injection.
--- NOTE | 2023-01-08 07:57 | PC.NURSE ---
IV access in L forearm discontinued per pts request. Pt reported access was causing her pain, and was tender when this RN flushed it.
[2023-01-08] MEDS: diphenhydrAMINE HCl CAP 25 MG CAPSULE 50 MG PO (09:34)
--- NOTE | 2023-01-08 10:15 | PC.NURSE ---
Called Hospitalist office - spoke with Clay in regards to pt requesting to be seen by a doctor - Requesting to go home.
--- NOTE | 2023-01-08 11:50 | PC.NURSE ---
pt self removed oxygen
--- NOTE | 2023-01-08 12:15 | PC.NURSE ---
0730 Pt requesting to be seen by provider due to wanting to leave because she believes her vital signs are better.
--- NOTE | 2023-01-08 12:17 | PC.NURSE ---
0900 Pt requesting to be seen by provider
--- NOTE | 2023-01-08 12:21 | PC.NURSE ---
1000 pt requesting to see provider, charge nurse notified.
--- NOTE | 2023-01-08 12:23 | PC.NURSE ---
1015 chargemaster analyst called for hospitalist to come see pt
--- NOTE | 2023-01-08 12:57 | PM.DS ---
DS: Admitting Diagnosis Discharge Date 01/08/23 Admitting Diagnosis PNA DS: Discharge Diagnosis Discharge Diagnosis (1) Acute hypoxemic respiratory failure: Code(s): J96.01 - Acute respiratory failure with hypoxia Status: Acute (2) Multifocal pneumonia: Code(s): J18.9 - Pneumonia, unspecified organism Status: Acute DS: Summary Hospital Course Reason for hospitalization: Resp failure Hospital Course: This is a 42-year-old female who presents to the ED via EMS for chief complaint of flulike symptoms beginning today.? Reports that she was at work when she started to feel sick today.? Reports having body aches, cough and sore throat.? She reports she is a smoker so she always has a little bit of a cough but it is somewhat productive.? She called ambulance today because she started to feel short of breath.? Reports tightness with breathing.? Patient reports the body aches are all throughout the arms, legs and back.? Denies chest pain or abdominal pain.? Denies nausea, vomiting, leg swelling, palpitations, LOC, headache, neck pain. She denied fever, N/V/D. She was found to have multifocal pneumonia in the ED, she requires 4L of o2 to maintain saturation above 95%, she is tacycardic and tachypneic, has received fluid bolus and also antibiotics, feels much better. This morning patient off oxygen, vital signs stable, leukocytosis, markedly improved. Patient earnestly requested discharge and was on the verge of leaving AMA, since she was stable and ambulating freely, I discharged on Levaquin for 6 days. Follow-up with PCP 3-5 days. Advised to come back ER shortness worse. Assessment and Plan Assessment and plan (1) Sepsis: ?Code(s): A41.9 - Sepsis, unspecified organism ?Status:?Acute (2) Multifocal pneumonia: ?Code(s): J18.9 - Pneumonia, unspecified organism ?Status:?Acute (3) Acute hypoxemic respiratory failure: ?Code(s): J96.01 - Acute respiratory failure with hypoxia ?Status:?Acute Plan discharged per above. F/u with PCP in 3-5 days Time Spent with Patient Time attestation: Total time spent providing and/or coordinating discharge services: DS: Data Data Completed and Pending Labs on day of discharge: Labs from last 24 hours 01/08/23 01/08/23 01/07/23 07:28 03:33 20:58 WBC 12.2 H 20.2 H RBC 4.94 5.08 Hgb 13.4 13.7 D Hct 43.0 43.0 MCV 87.0 84.6 MCH 27.1 27.0 MCHC 31.2 L 31.9 L RDW 14.6 H 14.6 H Plt Count 220 237 MPV 10.0 10.0 Immature Gran % (Auto) 0.2 0.4 Neut % (Auto) 80.6 H 89.2 H Lymph % (Auto) 6.6 L 4.7 L S[place]y % (Auto) 4.8 3.3 Eos % (Auto) 7.7 H 2.3 Baso % (Auto) 0.1 L 0.1 L Lymph # (Auto) 0.81 L 0.95 [place]y # (Auto) 0.6 0.7 H Eos # (Auto) 0.9 H 0.5 H Baso # (Auto) 0.0 0.0 Abs Immat Gran (auto) 0.03 0.09 H Absolute Neuts (auto) 9.8 H 18.0 H Absolute Nucleated RBC 0.0 0.0 Nucleated RBC % 0.0 0.0 PT 14.0 INR 1.0 APTT 37.8 H Sodium 136 L Potassium 3.5 Chloride 106 Carbon Dioxide 26 Anion Gap 4 L BUN 5 L Creatinine 0.60 L Estim Creat Clear Calc 101 Estimated GFR > 60 Glucose 95 Lactic Acid Calcium 7.9 L Total Bilirubin AST ALT Alkaline Phosphatase C-Reactive Protein Total Protein Albumin Urine Color Yellow Urine Appearance Clear Urine pH 6.0 Ur Specific [place] 1.041 H Urine Protein Negative Urine Glucose (UA) Negative Urine Ketones Negative Ur Blood (Man) Negative Urine Nitrate Negative Urine Bilirubin Negative Urine Urobilinogen 1.0 Leukocyte Esterase Rfl Negative Influenza A (RT-PCR) Influenza B (RT-PCR) RSV (RT-PCR) SARS-CoV-2 RNA (RT-PCR) 01/07/23 01/07/23 19:01 18:42 WBC RBC Hgb Hct MCV MCH MCHC RDW Plt Count MPV Immature Gran % (Auto) Neut % (Auto) Lymph % (Auto) [place]ible[place] % (Auto) Eos % (Auto)
--- NOTE | 2023-01-08 13:02 | PC.NURSE ---
pt transferred to room 315-1 from ER. Offers no complaints at this time.
--- NOTE | 2023-01-09 09:43 | PC.NURSE ---
Patient called with questions regarding her discharge instructions. All questions answered.
== END 2023-01-08 14:00 | disposition home or self-care (01) | DRG 720 ==
LOC: ANHED 21:42 → ANH3MEDSUR 01-08 00:46
PROVIDERS: Admitting Provider Student in an Organized Health Care Education/Training Program; Emergency Provider Physician Assistant; Visit Provider Internal Medicine
DX: A41.9 Sepsis, unspecified organism (principal); J96.01 Acute respiratory failure with hypoxia; J18.9 Pneumonia, unspecified organism; Z20.822 Contact with and (suspected) exposure to COVID-19; F17.210 Nicotine dependence, cigarettes, uncomplicated
CPT/HCPCS: 36415; 71045; 71275; 80048; 80053; 81003; 83605; 85025; 85610; 85730; 86140; 87040; 87147; 87181; 87186; 87637; 93005; 94640; 96361; 96365; 96367; 99291; A9270; G0378; G0379; J0456; J0696; J7030; Q9967

== ENCOUNTER → 2023-01-20 13:33 | Outpatient (CLI) | payer OTHER, SELFPAY ==
--- NOTE | ~2023-01-20 | XR_ITS ---
EXAMINATION: XR chest 2V DATE: 01/20/2023 13:51 INDICATION: Tobacco use, follow-up pneumonia TECHNIQUE: PA and lateral views of the chest are obtained. COMPARISON: 01/07/2023 FINDINGS: The lungs are free of acute opacities. No pleural effusion or pneumothorax. The cardiomedia stinal silhouette is normal. There is mild thoracic spondylosis. IMPRESSION: 1. No acute cardiopulmonary abnormality. Reviewed, dictated and finalized at location F. ET ATTENDANT
== END ==
PROVIDERS: PCP Emergency Medicine; Visit Provider Emergency Medicine
DX: J18.9 Pneumonia, unspecified organism (principal)
CPT/HCPCS: 71046

== ENCOUNTER 2023-02-24 15:18 | Outpatient (CLI) | payer OTHER, SELFPAY ==
--- NOTE | ~2023-02-24 | XR_ITS ---
EXAMINATION: XR chest 2V Exam Date/Time: 02/24/2023 15:45 IMAGING ADMINISTRATOR HISTORY: PNEUMONIA Comparison: 01/20/2023. RESULT: Lines, tubes, and devices: None. Lungs and pleura: Clear. Cardiomediastinal silhouette: Stable. Other: No acute osseous or upper abdominal finding. IMPRESSION: No acute cardiopulmonary process. Reviewed, dictated and finalized at location K. ING ADMINISTRATOR
[2023-02-24 16:21] LABS: SARS-CoV-2 RNA PCR Negative (Negative)
== END 2023-02-24 15:19 | disposition home or self-care (01) ==
PROVIDERS: PCP Emergency Medicine; Visit Provider Emergency Medicine
DX: J06.9 Acute upper respiratory infection, unspecified (principal); Z20.822 Contact with and (suspected) exposure to COVID-19
CPT/HCPCS: 71046; 87502; 87634; 87635; 87637

== ENCOUNTER 2023-02-28 17:18 | Emergency (ER) | payer OTHER, SELFPAY ==
[2023-02-28 17:34] VITALS: BP 160/97; PULSE 86; RESP 18; TEMP 36.6; O2SAT 100
--- NOTE | 2023-02-28 17:48 | ED.URI ---
HPI - URI/Sore Throat General Chief Complaint: Upper Respiratory Infection Stated Complaint: cough, hx pneumonia 1 month ago Time Seen by Provider: 02/28/23 17:40 Source: patient Mode of arrival: ambulatory Limitations: no limitations History of Present Illness HPI Narrative: Kimber is a 42-year-old female patient presenting to the clinic today with complaints of cough for over 1 month. She reports she had pneumonia 1 month ago and still has a lingering cough. Reports PCP ordered a chest x-ray and pneumonia has resolved. Still has lingering cough. Denies any cough production. Denies any shortness of breath. Also reports some vaginal discharge. States that she is concerned about bacterial vaginosis. Has had Trichomonas as well in the past. Patient states that her insurance runs out at midnight and is wanting evaluated for these issues tonight. MD elicited complaint: cough Related Data Allergies Allergy/AdvReac Type Severity Reaction Status Date / Time No Known Allergies Allergy Verified 01/08/23 08:00 Review of Systems Review of Systems: Pertinent positives per HPI. Patient denies any fever, chills, rash, headache, visual changes, dizziness, cough, shortness of breath, chest pain, palpitations, nausea, vomiting, diarrhea, constipation, abdominal pain, or any urinary issues. [facility], [facility] Past Medical History Medical History Obesity Surgical History Surgical History History of placement of ear tubes Hx of tonsillectomy Family History Family History Mother Heart disease Social History Social History Smoking packs per day: 0.5 Smoking cigarettes per day: 10.0 Years smoked: 26 Smoking pack-years: 13.00 Smoking status: Current every day smoker Second hand tobacco smoke exposure: Yes Alcohol intake: never Substance use: never Lack of Transportation: No Lack of Food: Never True Current Housing: I Have Housing Concerned About Future Housing: No Difficulty Paying Gas/Electric Bills: No Difficulty Paying for Meds: No Currently Unemployed: No Education: Trade/Vocational Certificate Difficulty w/ Childcare or Family Care: No Living arrangements: with family Spiritual care concerns: No Comments At the time of my signature, I reviewed and agree with the nursing past medical, surgical, social, and family history. There is no relevant family history pertinent to the patient complaint. Exam Narrative: General: Well-developed, well nourished, in no apparent distress Head: Normocephalic, atraumatic Eyes: Pupils equally round and reactive to light bilaterally, EOM intact, sclera and conjunctive clear, no discharge, lids normal Ears: TMs intact and clear, ear canals clear, no drainage, grossly hearing normal. Nose: Nares patent, no discharge, no inflammation, no sinus tenderness. Mouth: Oral pharynx without lesions or masses, good dentition, MMM. Neck: Supple, trachea midline, no enlargement of anterior or posterior cervical nodes, no thyroid masses or goiter palpable. Cardio: Regular rate and rhythm, s1 and s2 normal, no murmur appreciated. Resp: Clear to auscultation bilaterally, no rhonchi, rales, wheezing or rub Abdomen: Soft, pliable, bowel sounds present in all quadrants, non-tender to palpation, no CVAT tenderness. : Pelvic exam performed with ( Jesi CHAIREZ) at bedside. Verbal consent obtained from patient. Normal external female genitalia without lesions or masses, mild excoriation with white discharge noted in between the labia majora/minora Urinary meatus: patent without discharge, Vagina: No lesions, masses, thin white vaginal discharge, Cervix: pink without mass, lesions, discharge, or tenderness. Adnexa: without palpable mass
== END 2023-02-28 18:00 | disposition home or self-care (01) ==
PROVIDERS: Emergency Provider Nurse Practitioner Family; PCP Emergency Medicine
DX: N89.8 Other specified noninflammatory disorders of vagina (principal); R05.1 Acute cough; E66.9 Obesity, unspecified; Z68.30 Body mass index [BMI] 30.0-30.9, adult; F17.210 Nicotine dependence, cigarettes, uncomplicated
CPT/HCPCS: 81513; 99213; G0463

== ENCOUNTER 2023-10-26 15:50 | Emergency (ER) | payer SELFPAY ==
[2023-10-26 16:09] VITALS: BP 153/87; PULSE 87; RESP 16; TEMP 37.2; O2SAT 99
--- NOTE | 2023-10-26 17:27 | ED.GENADULT ---
HPI - General Adult General Chief complaint: Urogenital-Female Stated complaint: STD Source: patient Mode of arrival: ambulatory Limitations: no limitations History of Present Illness HPI narrative: Patient presents for evaluation vaginal discharge. She indicates she has been diagnosed with Trichomonas several times in the past and this feels similar. Symptom onset a few weeks ago. She tried using monistat without improvement. She states that the times she has tested positive for trich were after having intercourse with her child's father. She denies any fever, chills, abdominal pain, back pain, nausea, vomiting. She reports urinary frequency without other urinary symptoms. No vaginal bleeding or discharge. Pertinent surgical history includes uterine ablation and salpingectomy. Related Data Allergies Allergy/AdvReac Type Severity Reaction Status Date / Time No Known Allergies Allergy Verified 10/26/23 16:46 Review of Systems Review of Systems: CONSTITUTIONAL: Denies fever, chills, or sweats. EYES: Denies visual changes, redness, or discharge. ENT: Denies rhinorrhea, congestion, sore throat, or otalgia. CARDIOVASCULAR: Denies chest pain, palpitations, or edema. RESPIRATORY: Denies cough or dyspnea. GASTROINTESTINAL: Denies abdominal pain, nausea, vomiting, or diarrhea. GENITOURINARY: Reports yellow vaginal discharge and urinary frequency. Denies dysuria and other urinary symptoms. Denies vaginal bleeding. SKIN: Denies rash or itching. MUSCULOSKELETAL: Denies back pain, joint pain, or myalgia. NEUROLOGIC: Denies headache, numbness, dizziness, or weakness. PSYCHIATRIC: Denies anxiety or depression. [facility] Past Medical History Medical History Obesity Surgical History Surgical History History of placement of ear tubes History of salpingectomy Hx of tonsillectomy Family History Family History Mother Heart disease Social History Social History Smoking packs per day: 0.5 Smoking cigarettes per day: 10.0 Years smoked: 26 Smoking pack-years: 13.00 Smoking status: Current every day smoker Second hand tobacco smoke exposure: Yes Alcohol intake: never Substance use: never Lack of Transportation: No Lack of Food: Never True Current Housing: I Have Housing Concerned About Future Housing: No Difficulty Paying Gas/Electric Bills: No Difficulty Paying for Meds: No Currently Unemployed: No Education: Trade/Vocational Certificate Difficulty w/ Childcare or Family Care: No Living arrangements: with family Spiritual care concerns: No Exam Narrative: GENERAL: Well-appearing, well-nourished, and in no acute distress. HEAD: Normocephalic, atraumatic. EYES: PERRLA and EOMI. ENT: Nares clear, no rhinorrhea or epistaxis. Mucous membranes moist. Oropharynx without tonsillar hypertrophy exudate or other lesions. Bilateral TMs pearly judge nonbulging NECK: Supple. No adenopathy or masses. No carotid bruits or JVD CHEST: Clear to auscultation. No respiratory distress. No wheezes rales or rhonchi HEART: Regular rate and rhythm. No murmur heard. Normal peripheral pulses. ABDOMEN: Soft, nontender, nondistended, normal active bowel sounds. EXTREMITIES: Normal range of motion. No edema. SKIN: Warm, dry, no rash. NEURO: No focal deficits. Alert and oriented x3. PSYCH: Normal mood and affect. Course Course Emergency Course: This is a 43-year-old female who presented for evaluation of vaginal discharge and urinary frequency. I offered to treat her empirically for gonorrhea chlamydia. She declined. She would like to be treated for trichomonas. She has leukocytes present in her urine today. This could be related to suspected trich althoug
[2023-10-26] MEDS: metroNIDAZOLE 250 MG TABLET 2000 MG PO (17:54)
[2023-10-26 21:01] LABS: Trichomonas Vag PCR DETECTED (NOT DETECTE)
[2023-10-26 21:33] LABS: Chlamydia trachomatis NOT DETECTED (NOT DETECTE); Neisseria gonorrhoeae PCR NOT DETECTED (NOT DETECTE)
[2023-10-27 11:36] LABS: EDUAAPPEAR Clear; EDUABILI Negative; EDUABLOOD Trace; EDUACOLOR1 Yellow; EDUAGLUCOSE Negative; EDUAKETONE Negative; EDUALEUKO 1+; EDUANITRATE Negative; EDUAPROTEIN Negative; EDUASPGRAVITY 1.015; EDUAUROBILI 0.2
== END 2023-10-26 17:45 | disposition home or self-care (01) ==
PROVIDERS: Emergency Provider Nurse Practitioner
DX: N39.0 Urinary tract infection, site not specified (principal); Z11.3 Encounter for screening for infections with a predominantly sexual mode of transmission; F17.210 Nicotine dependence, cigarettes, uncomplicated; E66.9 Obesity, unspecified; Z68.26 Body mass index [BMI] 26.0-26.9, adult
CPT/HCPCS: 81003; 87086; 87491; 87591; 87661; 99213; A9270; G0463